=== PATIENT | female | born 1995 | race Caucasian/White ===

== ENCOUNTER 2021-04-06 08:32 | Inpatient (IN) ==
[~2021-04-06 08:32] MED LIST: Dinoprostone 10 MG VAG.SUPP VAGINAL ONE
[2021-04-06] MEDS ORDERED: CASIRIVI/IMDEVI-MAB 600-600 MG 10 ML in NS 0.9% 100 ml BAG 100 ML IV ONE (10:23)
[2021-04-06 10:45] LABS: ABS Basophils 0.1 10^3/ul (0-0.2); ABS Lymphocytes 1.1 10^3/ul (1.0-4.8); ABS Monocytes 0.6 10^3/ul (0-0.8); ABS Neutrophils 7.6 10^3/ul (1.5-7.7); Eosinophil % 0.3 %; Hematocrit 39 % (35-47); Lymphocyte % 11.8 %; Mean Corpuscular HGB Conc 33 g/dL (31-36); Mean Corpuscular Hemoglobin 29 pg (27-31); Mean Corpuscular Volume 86 fL (80-97); Mean Platelet Volume 9.5 fL (7.4-10.4); Platelet Count 217 10^3/uL (150-450); Red Blood Count 4.54 10^6 /uL (3.70-4.87); Red Cell Distribution Width 14 % (10-15); Urine Appearance Cloudy; Urine Bilirubin Negative (Negative); Urine Blood Negative (Negative); Urine Color Amber; Urine Glucose Negative (Negative); Urine Ketones Trace (Negative); Urine Nitrite Negative (Negative); Urine Protein 1+(30 mg/dL) (Negative); Urine Specific Gravity 1.026 (1.002-1.030); Urine Urobilinogen Negative (Negative); White Blood Count 9.4 10^3/uL (3.5-10.8)
[2021-04-06 10:48] LABS: Platelet Count 218 10^3/ul (150-450)
[2021-04-06 10:49] LABS: Urine Bacteria 3+ (Absent); Urine Red Blood Cell 1+(3-5/hpf) (Absent); Urine Squamous Epithelial Cell Present (Absent); Urine White Blood Cell 1+(6-10/hpf) (Absent)
[2021-04-06 10:53] LABS: Activated Partial Thrombo Time 29.3 seconds (26.0-38.0); Fibrinogen 397.9 mg/dL (110.8-404.3); INR 0.91 (0.86-1.15)
[2021-04-06] MEDS ORDERED: NS 0.9% 50 ML 50 ML IV ONE (10:55)
[2021-04-06 11:11] LABS: Albumin 3.1 g/dL (3.2-5.2); Calcium 8.3 mg/dL (8.6-10.3); EGFR African American 117.6 (>60); EGFR Non-African American 97.2 (>60); Potassium 3.6 mmol/L (3.5-5.0); Schistocytes ABSENT; Total Protein 6.2 g/dL (6.4-8.9); Uric Acid 6.8 mg/dL (2.3-6.6)
[2021-04-06 11:12] LABS: Globulin 3.1 g/dL (2-4); Total Bilirubin 0.3 mg/dL (0.2-1.0)
[2021-04-06] MEDS: Insulin NPH 100 units/ml SUBCUT SCH (21:23)
[2021-04-07] MEDS ORDERED: Penicillin G Potassium IV 5,000,000 UNITS in NS 0.9% 100 ml BAG 100 ML IVPB ONE (11:06)
[2021-04-07] MEDS: Penicillin G Potassium IV 3,000,000 UNITS in NS 0.9% 100 ml BAG 100 ML IVPB SCH ×3 (18:07→21:59)
[2021-04-07] MEDS: Oxytocin in LR 20 UNITS/1,000 ML BAG IVPB SCH (18:28)
[2021-04-07] MEDS: Insulin NPH 100 units/ml SUBCUT SCH (21:55)
[2021-04-07] MEDS ORDERED: Promethazine INJ(RESTRICTED) 25 MG/ML 1 ml VIAL IV PRN (23:51)
[2021-04-07] MEDS ORDERED: Morphine 10 MG/ML VIAL (1 ml) IV PRN (23:52)
[2021-04-08] MEDS: Penicillin G Potassium IV 3,000,000 UNITS in NS 0.9% 100 ml BAG 100 ML IVPB SCH ×3 (02:12→09:39)
[2021-04-08] MEDS ORDERED: OBEPIDURAL 250 ML EPIDURAL ONE (04:32)
[2021-04-08] MEDS: Oxytocin in LR 20 UNITS/1,000 ML BAG IVPB SCH (13:50)
[2021-04-08] MEDS ORDERED: Dibucaine 1% OINT 28.35 GM TUBE PR PRN (14:22)
[2021-04-08] MEDS ORDERED: Glycerin ADULT 2.4 gm SUPP PR PRN (14:22)
[2021-04-08] MEDS ORDERED: witch hazeL 43% TOP.SOLN 200 ML PHA COMPOUND TOPICAL PRN (14:28)
[2021-04-08] MEDS ORDERED: Lactated Ringers 1000 ml BAG 1,000 ML IV SCH (15:00)
[2021-04-08] MEDS ORDERED: Oxytocin in LR 20 UNITS/1,000 ML BAG IVPB SCH (15:00)
[2021-04-08] MEDS ORDERED: Lidocaine 1% VIAL 10 MG/ML VIAL ONE (17:18)
[2021-04-09 07:27] LABS: ABS Basophils 0.1 10^3/ul (0-0.2); ABS Eosinophils 0.2 10^3/ul (0-0.6); ABS Monocytes 0.6 10^3/ul (0-0.8); ABS Neutrophils 8.1 10^3/ul (1.5-7.7); Eosinophil % 1.7 %; Hematocrit 36 % (35-47); Lymphocyte % 24.8 %; Mean Corpuscular HGB Conc 33 g/dL (31-36); Mean Corpuscular Hemoglobin 28 pg (27-31); Mean Corpuscular Volume 85 fL (80-97); Mean Platelet Volume 8.8 fL (7.4-10.4); Platelet Count 187 10^3/uL (150-450); Red Blood Count 4.23 10^6 /uL (3.70-4.87); Red Cell Distribution Width 14 % (10-15)
[2021-04-09] MEDS: Penicillin G Potassium IV 3,000,000 UNITS in NS 0.9% 100 ml BAG 100 ML IVPB SCH (07:27)
[2021-04-10 08:25] VITALS: BP 127/72
== END 2021-04-10 11:38 | disposition home or self-care (01) | DRG 560 ==
LOC: MCHOBOUT 08:32 → MCHOB 04-07 10:12
PROVIDERS: ADMIT Obstetrics & Gynecology; ATTEND Obstetrics & Gynecology